=== PATIENT | male | born 1970 | race Caucasian/White ===

== ENCOUNTER 2018-09-06 21:10 | Emergency (ER) | payer BC ==
[~2018-09-06] VITALS: Ht 185.4 cm; Wt 83.9 kg
[2018-09-06 22:07] VITALS: BP 138/88
== END 2018-09-06 22:07 | disposition home or self-care (01) ==
LOC: ER 21:10
DX: L03.811 Cellulitis of head [any part, except face] (principal); L30.9 Dermatitis, unspecified